=== PATIENT | female | born 1965 | race Caucasian/White ===

== ENCOUNTER 2017-05-01 21:11 | Emergency (ER) | payer SELFPAY ==
--- NOTE | 2017-05-09 15:15 | ER ---
ADMIT: 05/01/2017 RM/LOC: ER [facility] MR#: [id number] [id number] [address] [place] [address] Emergency Room Report SEX: F AGE: 52 : 1965 DATE: 05/01/2017 ADDENDUM: This patient comes to the ER because she is having pain in her right ear. She also feels like the sound is muffled. On physical examination, she has a bulging TM that is red and does have fluid behind it. Posterior pharynx is benign. Oral mucosa is moist. No cervical lymphadenopathy. I wrote a prescription for amoxicillin, we will have her push fluids. Follow up with her primary in the next week if not feeling better. Please see my T-sheet. NANCY Partida / Qasim Blum MD / donya JOB #: [id number] CC: Qasim Blum MD, Attending Physician Nora Henning PA-C, Family Physician
== END 2017-05-01 22:00 | disposition home or self-care (01) ==
LOC: ER 21:11
DX: H66.91 Otitis media, unspecified, right ear (principal); Z90.49 Acquired absence of other specified parts of digestive tract